=== PATIENT | female | born 2000 | race American Indian/Alaskan Native ===

== ENCOUNTER 2020-05-20 07:50 | Emergency (ER) | payer OTHER ==
[2020-05-20 08:29] LABS: HCG Qualitative,Urine Negative (Negative)
[2020-05-20 08:35] LABS: Bacteria,Urine 1+ /HPF (Negative); Bilirubin,Urine NEG (Negative); Blood,Urine NEG (Negative); Color,Urine Amber (Yellow); Mucus,Urine 3+ /HPF
[2020-05-20] MEDS ORDERED: diphenhydrAMINE 25 MG CAP PO ONE (09:31)
[2020-05-20] MEDS ORDERED: METOCLOPRAMIDE 10 MG TAB PO ONE (09:31)
--- NOTE | 2020-05-20 09:35 | Emergency Department Report ---
Vomiting/Diarrhea - [facility] Chief Complaint: Nausea/Vomiting/Diarrhea Stated Complaint: ABD PAIN,NAUSEA Time Seen by Provider: 05/20/20 09:30 Duration: 2 Days Nausea/Vomiting Severity: Mild Diarrhea Severity: None Other History: 19-year-old -Spanish female presents to the emergency room complaining of nausea secondary to her menstrual cycle. Patient states around her menstrual cycle she gets very agitated and nausea and vomiting. She reported that she has been followed by [employer] as she had a cyst on her ovaries that will cause the symptoms. She reports that her [employer] S[employer] MANAGER states that she no longer has the cyst but she just has the follicles and that should not be causing her to be nauseated. ED Review of Systems ROS: Stated complaint: ABD PAIN,NAUSEA Other details as noted in HPI ED Past Medical Hx - Past Medical History Previous Medical History?: Yes Hx Asthma: Yes - Social History Smoking Status: Never Smoker Substance Use Type: None - Medications Home Medications: Home Medications Medication Instructions Recorded Confirmed Last Taken Type Cyclobenzaprine HCl [Flexeril 5 MG 5 mg PO QHS #8 tab 07/16/18 Unknown Rx TAB] Ibuprofen [Motrin] 600 mg PO Q8H PRN #30 tablet 07/16/18 Unknown Rx Metoclopramide [Reglan] 10 mg PO TID PRN #12 tab 05/20/20 Unknown Rx Nitrofurantoin Kings/M-Cryst 100 mg PO Q12HR 10 Days #20 capsule 05/20/20 Unknown Rx [Macrobid CAP] diphenhydrAMINE [Benadryl CAP] 25 mg PO Q8HR PRN #15 capsule 05/20/20 Unknown Rx Vomiting Diarrhea Exam - Exam General: Vital signs noted. No distress. Alert and acting appropriately. Neck: No Adenopathy, No Rigidity Lungs: Yes Clear Lung Sounds, Yes Good Air Exchange, No Wheezes, No Stridor, No Cough, No Nasal Flaring, No Retractions, No Use of Accessory Muscles Heart exam: Regular: Yes, Murmur: No, Tachycardia: No Abdomen: Tenderness: No, Peritoneal Signs: No, Distention: No, Hyperactive Bowel sounds: No Neurologic: Alert and oriented, no deficits. Musculoskeletal: Unremarkable. ED Medical Decision Making - Medical Decision Making 19-year-old -Spanish female presents to the emergency room complaining of nausea secondary to her menstrual cycle. Patient states around her menstrual cycle she gets very agitated and nausea and vomiting. She reported that she has been followed by [employer] as she had a cyst on her ovaries that will cause the symptoms. She reports that her [employer] S[employer] MANAGER states that she no longer has the cyst but she just has the follicles and that should not be causing her to be nauseated. Urinalysis urine test has been sent. Patient be given Reglan 10 mg p.o. Benadryl 25 mg p.o. for the nausea and vomiting and agitation. Urine appears to have a urinary tract infection will treat with Macrobid 100 mg p.o. twice daily for 10 days. Patient is encouraged to increase fluid intake. She can take Reglan for the nausea. She can take [id number] Benadryl for the agitation. Critical care attestation.: If time is entered above; I have spent that time in minutes in the direct care of this critically ill patient, excluding procedure time. ED Disposition Clinical Impression: UTI (urinary tract infection), Anxiety Disposition: TO HOME OR SELFCARE Is pt being admited?: No Does the pt Need Aspirin: No Condition: Stable Instructions: Urinary Tract Infection in Women (ED), Anxiety (ED) Additional Instructions: Urine is positive for urinary tract infection. I felt like for you to complete your antibiotics as prescribed. For your anxiety and nausea take the Reglan and Benadryl as needed. Follow-up with a primary care provider. Prescriptions: diphenhydrAMINE [Benadryl CAP] 25 mg PO Q8HR PRN #15 capsule PRN Reason: Anxiety Nitrofurantoin Kings/M-Cryst [Macrobid CAP] 100 mg PO Q12HR 10 Days #20 capsule Metoclopramide [Reglan] 10 mg PO TID PRN #12 tab PRN Reason: Nausea And Vomiting Referrals: PRIMARY CARE, [Primary Care Provider] - 3-5 Days Forms: Work/School Release Form(ED)
[2020-05-20 10:34] VITALS: BP 128/86
== END 2020-05-20 10:34 | disposition home or self-care (01) ==
LOC: ED 07:50
DX: F41.9 Anxiety disorder, unspecified (principal); N39.0 Urinary tract infection, site not specified; J45.909 Unspecified asthma, uncomplicated; Z79.899 Other long term (current) drug therapy
CPT/HCPCS: 81001; 81025; 87086; 99283

== ENCOUNTER 2020-07-14 15:42 | Emergency (ER) | payer OTHER ==
[2020-07-14 15:58] VITALS: BP 137/82
[2020-07-14] MEDS ORDERED: DIPHtheria,PERTUSSIS(ACELL),TETANUS VACCINE/PF 0.5 ML VIAL IM ONE (16:19)
--- NOTE | 2020-07-14 16:19 | Event Note ---
ED Screening Note ED Screening Note: left ring finger laceration at work, cut by piece of metal able to move the finger did not get smashed unsure of last tetanus immunization no pmhx no allergies to meds lnmp: 06/20/2020 This initial assessment/diagnostic orders/clinical plan/treatment(s) is/are subject to change based on patients health status, clinical progression and re- assessment by fellow clinical providers in the ED. Further treatment and workup at subsequent clinical providers discretion. Patient/guardian urged not to elope from the ED as their condition may be serious if not clinically assessed and managed. Initial orders include: tdap acc eval
[2020-07-14] MEDS ORDERED: BUPIVACAINE/PF (0.5%) 5 MG/1 ML 10 ML VIAL INFILTRATI ONE (17:38)
--- NOTE | 2020-07-14 18:09 | XRay Report ---
LEFT FINGER(S) 3 VIEW(S) INDICATION / CLINICAL INFORMATION: laceration / trauma COMPARISON: None available. FINDINGS: BONES / JOINT(S): Acute comminuted fracture through the ring finger terminal tuft with approximately 2 mm of distraction and incomplete fracture line extending into the terminal phalanx diaphysis. No di slocation. No significant arthritis. SOFT TISSUES: Swelling and laceration at the distal ring finger. Correlate for nail bed injury. No ra diopaque foreign body. ADDITIONAL FINDINGS: None. Signer Name: Cuco Santillan MD Signed: 07/14/2020 6:05 PM Workstation Name: [id number]
[2020-07-14] MEDS ORDERED: HYDROcodone/ACETAMINOPHEN 5-325 MG TAB PO ONE (18:45)
[2020-07-14] MEDS ORDERED: LIDOCAINE (1%) 10 MG/1 ML VIAL 20 ML MDV INFILTRATI ONE (18:45)
--- NOTE | 2020-07-14 20:01 | Emergency Department Report ---
- General Chief Complaint: Wound/Laceration Stated Complaint: FINGER LACERATION Time Seen by Provider: 07/14/20 16:17 Source: patient Mode of arrival: Ambulatory Limitations: No Limitations - History of Present Illness Initial Comments: This is a 20 y/o female who presents for left ring finger laceration , happened at work, cut by piece of metal, able to move the fingerdid not get smashed unsure of last tetanus immunization , no pmhx, no allergies to meds , lnmp: 06/20/2020. pain is 4/10 throbbing. rom intact. - Related Data Previous Rx's Medication Instructions Recorded Last Taken Type Cyclobenzaprine HCl [Flexeril 5 MG 5 mg PO QHS #8 tab 07/16/18 Unknown Rx TAB] Ibuprofen [Motrin] 600 mg PO Q8H PRN #30 tablet 07/16/18 Unknown Rx Metoclopramide [Reglan] 10 mg PO TID PRN #12 tab 05/20/20 Unknown Rx Nitrofurantoin [place]/M-Cryst 100 mg PO Q12HR 10 Days #20 capsule 05/20/20 Unknown Rx [Macrobid CAP] diphenhydrAMINE [Benadryl CAP] 25 mg PO Q8HR PRN #15 capsule 05/20/20 Unknown Rx cephALEXin [Keflex] 500 mg PO Q8HR 7 Days #21 cap 07/14/20 Unknown Rx traMADoL [Ultram] 50 mg PO Q6HR PRN #12 tablet 07/14/20 Unknown Rx Allergies Allergy/AdvReac Type Severity Reaction Status Date / Time No Known Allergies Allergy Unverified 07/16/18 10:19 ED Review of Systems ROS: Stated complaint: FINGER LACERATION Other details as noted in HPI Constitutional: denies: chills, fever Eyes: denies: eye pain, eye discharge, vision change ENT: denies: ear pain, throat pain Respiratory: denies: cough, shortness of breath, wheezing Cardiovascular: denies: chest pain, palpitations Endocrine: no symptoms reported Gastrointestinal: denies: abdominal pain, nausea, diarrhea Genitourinary: denies: urgency, dysuria, discharge Musculoskeletal: other (left hand 4th digit tip laceration , no nail involvment ). denies: back pain, joint swelling, arthralgia Skin: other (laceration as above ). denies: rash, lesions Neurological: denies: headache, weakness, paresthesias Psychiatric: denies: anxiety, depression Hematological/Lymphatic: denies: easy bleeding, easy bruising ED Past Medical Hx - Past Medical History Hx Asthma: Yes - Surgical History Past Surgical History?: No - Social History Smoking Status: Current Every Day Smoker Substance Use Type: None - Medications Home Medications: Home Medications Medication Instructions Recorded Confirmed Last Taken Type Cyclobenzaprine HCl [Flexeril 5 MG 5 mg PO QHS #8 tab 07/16/18 Unknown Rx TAB] Ibuprofen [Motrin] 600 mg PO Q8H PRN #30 tablet 07/16/18 Unknown Rx Metoclopramide [Reglan] 10 mg PO TID PRN #12 tab 05/20/20 Unknown Rx Nitrofurantoin [place]/M-Cryst 100 mg PO Q12HR 10 Days #20 capsule 05/20/20 Unknown Rx [Macrobid CAP] diphenhydrAMINE [Benadryl CAP] 25 mg PO Q8HR PRN #15 capsule 05/20/20 Unknown Rx cephALEXin [Keflex] 500 mg PO Q8HR 7 Days #21 cap 07/14/20 Unknown Rx traMADoL [Ultram] 50 mg PO Q6HR PRN #12 tablet 07/14/20 Unknown Rx ED Physical Exam - General Limitations: No Limitations General appearance: alert, in no apparent distress - Head Head exam: Present: atraumatic, normocephalic - Eye Eye exam: Present: normal appearance, EOMI Pupils: Present: normal accommodation - ENT ENT exam: Present: mucous membranes moist - Neck Neck exam: Present: normal inspection, full ROM - Respiratory Respiratory exam: Present: normal lung sounds bilaterally. Absent: respiratory distress - Cardiovascular Cardiovascular Exam: Present: regular rate, normal rhythm, normal heart sounds. Absent: systolic murmur, diastolic murmur, rubs, gallop - GI/Abdominal GI/Abdominal exam: Present: soft, normal bowel sounds - Rectal Rectal exam: Present: deferred - Extremities Exam Extremities exam: Present: full ROM, tenderness, normal capillary refill - Expanded Upper Extremity Exam Left Hand Wrist exam: Present: full ROM, tenderness, laceration (distal finger tip no nail involvment CMS intact 2 cm laceration, rom intact, adduction, abduction intact to direct confrontaion). Absent: amputation, nail avulsion, subungual hematoma Neuro motor exam: Present: wrist extension intact, thumb opposition intact, thumb IP flexion intact, thumb adduction intact, fingers 2-5 abduction intact Neurosensory exam: Present: radial nerve intact Vascular: Present: normal capillary refill - Back Exam Back exam: Present: normal inspection, full ROM - Neurological Exam Neurological exam: Present: alert, oriented X3, reflexes normal. Absent: motor sensory deficit - Expanded Neurological Exam Expanded Patient oriented to: Present: person, place, time Speech: Present: fluid speech Motor strength exam: RUE: 5, LUE: 5 Best Eye Response (Ernie): (4) open spontaneously Best Motor Response (Ernie): (6) obeys commands Best Verbal Response (Ernie): (5) oriented Weld Total: 15 - Psychiatric Psychiatric exam: Present: normal affect, normal mood - Skin Skin exam: Present: warm, dry, normal color, other (laceration as above ). Absent: rash ED Course Vital Signs 07/14/20 15:53 Temperature 98.7 F Pulse Rate 83 Respiratory 18 Rate Blood Pressure 137/82 O2 Sat by Pulse 100 Oximetry - Laceration /Wound Repair Left Distal Finger Wound Location: upper extremity (left distal finger tip laceration, ) Wound Length (cm): 2 Wound's Depth, Shape: irregular Wound Explored: clean Irrigated w/ Saline (ccs): 50 Betadine Prep?: Yes Anesthesia: 1% Lidocaine Volume Anesthetic (ccs): 1 Wound Debrided: none required Wound Repaired With: sutures Suture Size/Type: 4:0, proline Number of Sutures: 5 Layer Closure?: No Sterile Dressing Applied?: Yes Progress: left distal ring finger laceration , no nail involvment, no bone exposure, rom intact, cms intact no muscle ,nerve, or tendon involvement. wound cleaned with betadine solution, anesthesia with 1% lidocaine x 1 cc via digital block, anesthesia was achieved, wound irrigated with 50 cc sterile saline, explore visually , and blunt tweezers, no foreign body, wound close with 4.0 prolene x 5 sutures, edges well approximated all bleeding is controlled, sterile dressing intact, pt tolerated procedure with minimal distress, given wound care instructions, pt verbalized agreement and understanding of same. ED Medical Decision Making - Radiology Data Radiology results: report reviewed, image reviewed Findings Reporting MD: Cuco Santillan Dictation Time: July 14, 2020 17:05 Transitions Manager: Not available Gas Leak Inspector Helper Date: LEFT FINGER(S) 3 VIEW(S) INDICATION / CLINICAL INFORMATION: laceration / trauma COMPARISON: None available. FINDINGS: BONES / JOINT(S): Acute comminuted fracture through the ring finger terminal tuft with approximately 2 mm of distraction and incomplete fracture line extending into the terminal phalanx diaphysis. No dislocation. No significant arthritis. SOFT TISSUES: Swelling and laceration at the distal ring finger. Correlate for nail bed injury. No radiopaque foreign body. ADDITIONAL FINDINGS: None. Signer Name: Cuco Santillan MD Signed: 07/14/2020 5:05 PM Workstation Name: [id number] - Medical Decision Making left ring finger tuff fx, finger laceration 2 cm, wound closed see procedure note, there is no nail damage, CMS intact, distal pulses intact, pt given dc instructions including follow up with pcp in2 days for wound check , and 7-10 days for suture removal, pt dc'd to home in stable condition, with rx. finger splint placed by nursing, splint check complete. and appropriate. Critical care attestation.: If time is entered above; I have spent that time in minutes in the direct care of this critically ill patient, excluding procedure time. ED Disposition Clinical Impression: Open fracture of tuft of distal phalanx of finger Finger laceration Qualifiers: Encounter type: initial encounter Finger: ring finger Damage to nail status: without damage Foreign body presence: without foreign body Laterality: left Qualified Code(s): S61.215A - Laceration without foreign body of left ring finger without damage to nail, initial encounter Disposition: DC-01 TO HOME OR SELFCARE Is pt being admited?: No Does the pt Need Aspirin: No Condition: Stable Instructions: Finger Fracture (ED), Finger Laceration (ED) Prescriptions: cephALEXin [Keflex] 500 mg PO Q8HR 7 Days #21 cap traMADoL [Ultram] 50 mg PO Q6HR PRN #12 tablet PRN Reason: Pain Referrals: CUCO ESCOBAR MD [Staff Physician] - 3-5 Days Forms: Work/School Release Form(ED)
== END 2020-07-14 20:05 | disposition home or self-care (01) ==
LOC: ED 15:42
DX: S61.215A Laceration without foreign body of left ring finger without damage to nail, initial encounter (principal); S62.635A Displaced fracture of distal phalanx of left ring finger, initial encounter for closed fracture; J45.909 Unspecified asthma, uncomplicated; F17.200 Nicotine dependence, unspecified, uncomplicated; Z79.1 Long term (current) use of non-steroidal anti-inflammatories (NSAID); Z79.899 Other long term (current) drug therapy; W26.8XXA Contact with other sharp object(s), not elsewhere classified, initial encounter; Y93.89 Activity, other specified; Y92.89 Other specified places as the place of occurrence of the external cause; Y99.0 Civilian activity done for income or pay
CPT/HCPCS: 90471; 90715

== ENCOUNTER 2020-07-25 14:55 | Emergency (ER) | payer OTHER ==
[2020-07-25 15:06] VITALS: BP 123/76
--- NOTE | 2020-07-25 15:52 | Emergency Department Report ---
Suture/Staple Removal - HPI Chief Complaint: Laceration/Recheck/Suture Stated Complaint: STITCHES REMOVED Time Seen by Provider: 07/25/20 15:48 ED Review of Systems ROS: Stated complaint: STITCHES REMOVED Other details as noted in HPI Comment: All other systems reviewed and negative Constitutional: denies: chills, fever ENT: denies: ear pain Cardiovascular: denies: chest pain, palpitations Skin: other. denies: change in color Psychiatric: denies: anxiety, auditory hallucinations ED Past Medical Hx - Past Medical History Hx Asthma: Yes - Surgical History Past Surgical History?: No - Social History Smoking Status: Never Smoker - Medications Home Medications: Home Medications Medication Instructions Recorded Confirmed Last Taken Type Cyclobenzaprine HCl [Flexeril 5 MG 5 mg PO QHS #8 tab 07/16/18 Unknown Rx TAB] Ibuprofen [Motrin] 600 mg PO Q8H PRN #30 tablet 07/16/18 Unknown Rx Metoclopramide [Reglan] 10 mg PO TID PRN #12 tab 05/20/20 Unknown Rx Nitrofurantoin [place]/M-Cryst 100 mg PO Q12HR 10 Days #20 capsule 05/20/20 Unknown Rx [Macrobid CAP] diphenhydrAMINE [Benadryl CAP] 25 mg PO Q8HR PRN #15 capsule 05/20/20 Unknown Rx cephALEXin [Keflex] 500 mg PO Q8HR 7 Days #21 cap 07/14/20 Unknown Rx traMADoL [Ultram] 50 mg PO Q6HR PRN #12 tablet 07/14/20 Unknown Rx Suture Removal Exam - Exam General: Vital signs noted. No distress. Alert and acting appropriately. Wound: Yes Tenderness, No Pathologic Erythema, No Drainage, No Pus, No Wound Dehiscence Other Systems: All other systems reviewed and are unremarkable. Sutures removed no signs and symptoms of infection no drainage or pus discharge home with instructions to keep area clean and dry with ED Course Vital Signs 07/25/20 15:00 Temperature 98.0 F Pulse Rate 83 Respiratory 16 Rate Blood Pressure 123/76 O2 Sat by Pulse 100 Oximetry ED Recheck MDM - Core Measures AMI Core Measures Followed: No Measure Exclusions: not indicated - Differential Diagnosis Suture/Staple Removal Suture removal wound recheck - Medical Decision Making Sutures removed patient tolerated well discharge home with daily wound care Critical Care Time: No Critical care attestation.: If time is entered above; I have spent that time in minutes in the direct care of this critically ill patient, excluding procedure time. ED Disposition Clinical Impression: Visit for suture removal Disposition: DC-01 TO HOME OR SELFCARE Is pt being admited?: No Does the pt Need Aspirin: No Condition: Stable Instructions: Incision Care, Adult Additional Instructions: Keep wound clean and dry Referrals: PRIMARY CARE, [Primary Care Provider] - 3-5 Days Time of Disposition: 15:53
== END 2020-07-25 16:10 | disposition home or self-care (01) ==
LOC: ED 14:55
DX: T14.8XXD Other injury of unspecified body region, subsequent encounter (principal); Z53.21 Procedure and treatment not carried out due to patient leaving prior to being seen by health care provider

== ENCOUNTER 2022-01-28 18:42 | Emergency (ER) | payer OTHER ==
[2022-01-28 21:16] LABS: Basophils % (Auto) 0.2 % (0.0-1.8); Hematocrit 40.6 % (30.3-42.9); Hemoglobin 13.5 gm/dl (10.1-14.3); Lymphocytes # (Auto) 0.9 K/mm3 (1.2-5.4); Lymphocytes % (Auto) 8.8 % (13.4-35.0); Mean Corpuscular HGB Conc 33 % (30-34); Mean Corpuscular Volume 82 fl (79-97); Monocytes # (Auto) 0.6 K/mm3 (0.0-0.8); Platelet Count 241 K/mm3 (140-440); Red Blood Count 4.96 M/mm3 (3.65-5.03)
[2022-01-28 21:36] LABS: Alanine Aminotransferase 17 units/L (7-56); Albumin 5.4 g/dL (3.9-5); Blood Urea Nitrogen 13 mg/dL (7-17); Calcium 10.4 mg/dL (8.4-10.2); Hemolysis Index 6
[2022-01-28 21:45] LABS: Bilirubin,Urine NEG (Negative); Blood,Urine NEG (Negative); Color,Urine Yellow (Yellow); Mucus,Urine 3+ /HPF; Urobilinogen,Urine < 2.0 mg/dL (<2.0)
[2022-01-28 21:45] LABS: BUN/Creatinine Ratio 19
[2022-01-28] MEDS ORDERED: ONDANSETRON 4 MG ODT TAB PO STA (23:51)
[2022-01-28] MEDS ORDERED: HYOSCYAMINE SUBL 0.125 MG TAB SL ONE (23:51)
[2022-01-28] MEDS ORDERED: SODIUM CHLORIDE 0.9% 1000 ML 1,000 ML IV ONE (23:51)
--- NOTE | 2022-01-28 23:55 | Emergency Department Report ---
ED General Adult HPI - General Chief complaint: Nausea/Vomiting/Diarrhea Stated complaint: VOMITING Time Seen by Provider: 01/28/22 23:49 Source: patient Mode of arrival: Ambulatory Limitations: No Limitations - History of Present Illness Initial comments: 21-year-old female Lindy emerged department complaining of a 2-day history of nausea and vomiting repetitively after eating ground beef which she thinks may have been bad she reports no diarrhea however. No hemoptysis no hematemesis hematochezia, no fever, chills, sweats. No chest pain, no palpitations, no headache, no blurred vision, no dizziness. -: Gradual Consistency: constant Improves with: none Worsens with: none Associated Symptoms: denies other symptoms - Related Data Previous Rx's Medication Instructions Recorded Last Taken Type Cyclobenzaprine HCl [Flexeril 5 MG 5 mg PO QHS #8 tab 07/16/18 Unknown Rx TAB] Ibuprofen [Motrin] 600 mg PO Q8H PRN #30 tablet 07/16/18 Unknown Rx Metoclopramide [Reglan] 10 mg PO TID PRN #12 tab 05/20/20 Unknown Rx Nitrofurantoin [place]/M-Cryst 100 mg PO Q12HR 10 Days #20 capsule 05/20/20 Unknown Rx [Macrobid CAP] diphenhydrAMINE [Benadryl CAP] 25 mg PO Q8HR PRN #15 capsule 05/20/20 Unknown Rx cephALEXin [Keflex] 500 mg PO Q8HR 7 Days #21 cap 07/14/20 Unknown Rx traMADoL [Ultram] 50 mg PO Q6HR PRN #12 tablet 07/14/20 Unknown Rx Hyoscyamine Subl [Levsin Sl 0.125 0.125 mg SL Q6HR PRN #20 tab 01/29/22 Unknown Rx TAB] Ondansetron [Zofran Odt] 4 mg PO Q8HR #20 tab.rapdis 01/29/22 Unknown Rx Allergies Allergy/AdvReac Type Severity Reaction Status Date / Time No Known Allergies Allergy Unverified 07/16/18 10:19 ED Review of Systems ROS: Stated complaint: VOMITING Other details as noted in HPI Comment: All other systems reviewed and negative ED Past Medical Hx - Past Medical History Hx Asthma: Yes - Social History Smoking Status: Never Smoker - Medications Home Medications: Home Medications Medication Instructions Recorded Confirmed Last Taken Type Cyclobenzaprine HCl [Flexeril 5 MG 5 mg PO QHS #8 tab 07/16/18 Unknown Rx TAB] Ibuprofen [Motrin] 600 mg PO Q8H PRN #30 tablet 07/16/18 Unknown Rx Metoclopramide [Reglan] 10 mg PO TID PRN #12 tab 05/20/20 Unknown Rx Nitrofurantoin [place]/M-Cryst 100 mg PO Q12HR 10 Days #20 capsule 05/20/20 Unknown Rx [Macrobid CAP] diphenhydrAMINE [Benadryl CAP] 25 mg PO Q8HR PRN #15 capsule 05/20/20 Unknown Rx cephALEXin [Keflex] 500 mg PO Q8HR 7 Days #21 cap 07/14/20 Unknown Rx traMADoL [Ultram] 50 mg PO Q6HR PRN #12 tablet 07/14/20 Unknown Rx Hyoscyamine Subl [Levsin Sl 0.125 0.125 mg SL Q6HR PRN #20 tab 01/29/22 Unknown Rx TAB] Ondansetron [Zofran Odt] 4 mg PO Q8HR #20 tab.rapdis 01/29/22 Unknown Rx ED Physical Exam - General Limitations: No Limitations General appearance: alert, in no apparent distress - Head Head exam: Present: atraumatic, normocephalic - Eye Eye exam: Present: normal appearance - ENT ENT exam: Present: mucous membranes moist - Neck Neck exam: Present: normal inspection - Respiratory Respiratory exam: Present: normal lung sounds bilaterally. Absent: respiratory distress - Cardiovascular Cardiovascular Exam: Present: regular rate, normal rhythm. Absent: systolic murmur, diastolic murmur, rubs, gallop - GI/Abdominal GI/Abdominal exam: Present: soft, normal bowel sounds - Extremities Exam Extremities exam: Present: normal inspection - Back Exam Back exam: Present: normal inspection - Neurological Exam Neurological exam: Present: alert, oriented X3 - Psychiatric Psychiatric exam: Present: normal affect, normal mood - Skin Skin exam: Present: warm, dry, intact, normal color. Absent: rash ED Course Vital Signs 01/28/22 01/29/22 01/29/22 19:21 02:34 04:00 Temperature 98.9 F Pulse Rate 97 H 60 60 Respiratory 18 18 18 Rate Blood Pressure 131/97 Blood Pressure 100/66 100/66 [Left] O2 Sat by Pulse 99 100 100 Oximetry ED Medical Decision Making - Lab Data Result diagrams: 01/28/22 20:45 01/28/22 20:45 Critical care attestation.: If time is entered above; I have spent that time in minutes in the direct care of this critically ill patient, excluding procedure time. ED Disposition Clinical Impression: Nausea & vomiting Disposition: 01 HOME / SELF CARE / HOMELESS Condition: Stable Instructions: Viral Gastroenteritis, Adult, [id number], Food Choices to Help Relieve Diarrhea, Adult, Rotavirus Infection, Adult, Nausea and Vomiting, Adult, [id number] Prescriptions: Hyoscyamine Subl [Levsin Sl 0.125 TAB] 0.125 mg SL Q6HR PRN #20 tab PRN Reason: abdominal pian Ondansetron [Zofran Odt] 4 mg PO Q8HR #20 tab.stefanie Referrals: FATMATA IRAHETA MD [Primary Care Provider] - 3-5 Days
[2022-01-29 02:35] VITALS: BP 100/66
== END 2022-01-29 04:17 | disposition home or self-care (01) ==
LOC: ED 18:42
DX: R11.2 Nausea with vomiting, unspecified (principal); J45.909 Unspecified asthma, uncomplicated; Z79.899 Other long term (current) drug therapy
CPT/HCPCS: 36415; 80053; 81001; 84703; 85025; 96360; 99283; J7030; J3490; Q0162

== ENCOUNTER 2022-03-24 10:09 | Emergency (ER) | payer OTHER ==
[2022-03-24 11:16] LABS: Bilirubin,Urine NEG (Negative); Blood,Urine NEG (Negative); Color,Urine Yellow (Yellow)
[2022-03-24 12:18] LABS: Mucus,Urine 3+ /HPF
--- NOTE | 2022-03-24 12:28 | Emergency Department Report ---
ED Female HPI - General Chief complaint: Abdominal Pain Stated complaint: VOMITING/DEHYDRATION/PAIN WHEN SWALLOWING Time Seen by Provider: 03/24/22 11:54 Source: patient Mode of arrival: Ambulatory Limitations: No Limitations - History of Present Illness Initial comments: Patient is a 21-year-old female that comes to the emergency room complaining na usea, no vomiting but with epigastric distress. She endorses dysuria., No back pain. Denies being . Last menstrual cycle 2 weeks ago. Patient denies diarrhea. She denies any abdominal pain per se. She denies back pain. She denies fever or chills. No fever cough or congestion. Patient ambulatory, nontoxic [id number] on arrival to the ER -: Gradual, days(s) Consistency: intermittent Improves with: none Worsens with: none Are you Now?: No Associated Symptoms: denies other symptoms - Related Data Sexually active: Yes Previous Rx's Medication Instructions Recorded Last Taken Type Sulfamethoxazole/Trimethoprim 1 each PO BID #10 tablet 03/24/22 Unknown Rx [Bactrim DS TAB] Allergies Allergy/AdvReac Type Severity Reaction Status Date / Time No Known Allergies Allergy Unverified 07/16/18 10:19 ED Review of Systems ROS: Stated complaint: VOMITING/DEHYDRATION/PAIN WHEN SWALLOWING Other details as noted in HPI Comment: All other systems reviewed and negative ED Past Medical Hx - Past Medical History Previous Medical History?: Yes Hx GERD: Yes Hx Asthma: Yes - Surgical History Past Surgical History?: No - Family History Family history: no significant - Social History Smoking Status: Current Every Day Smoker Substance Use Type: None - Medications Home Medications: Home Medications Medication Instructions Recorded Confirmed Last Taken Type Sulfamethoxazole/Trimethoprim 1 each PO BID #10 tablet 03/24/22 Unknown Rx [Bactrim DS TAB] ED Physical Exam - General Limitations: No Limitations General appearance: alert, in no apparent distress - Head Head exam: Present: atraumatic, normocephalic - Eye Eye exam: Present: normal appearance - ENT ENT exam: Present: mucous membranes moist - Neck Neck exam: Present: normal inspection - Respiratory Respiratory exam: Present: normal lung sounds bilaterally. Absent: respiratory distress - Cardiovascular Cardiovascular Exam: Present: regular rate, normal rhythm. Absent: systolic murmur, diastolic murmur, rubs, gallop - GI/Abdominal GI/Abdominal exam: Present: soft, normal bowel sounds - Extremities Exam Extremities exam: Present: normal inspection - Back Exam Back exam: Present: normal inspection - Neurological Exam Neurological exam: Present: alert, oriented X3 - Psychiatric Psychiatric exam: Present: normal affect, normal mood - Skin Skin exam: Present: warm, dry, intact, normal color. Absent: rash ED Course Vital Signs 03/24/22 10:14 Temperature 99.1 F Pulse Rate 86 Respiratory 18 Rate Blood Pressure 98/70 O2 Sat by Pulse 98 Oximetry ED Medical Decision Making - Lab Data Result diagrams: 03/24/22 11:43 03/24/22 11:43 - Medical Decision Making Vital Signs 03/24/22 10:14 Temperature 99.1 F Pulse Rate 86 Respiratory 18 Rate Blood Pressure 98/70 O2 Sat by Pulse 98 Oximetry Lab Results 03/24/22 03/24/22 03/24/22 Range/Units 11:43 11:43 Unknown WBC 9.6 (4.5-11.0) K/mm3 RBC 5.31 H (3.65-5.03) M/mm3 Hgb 14.3 (10.1-14.3) gm/dl Hct 44.3 H (30.3-42.9) % MCV 84 (79-97) fl MCH 27 L (28-32) pg MCHC 32 (30-34) % RDW 14.6 (13.2-15.2) % Plt Count 241 (140-440) K/mm3 Sodium 133 L (137-145) mmol/L Potassium 3.0 L (3.6-5.0) mmol/L Chloride 93.2 L (98-107) mmol/L Carbon Dioxide 28 (22-30) mmol/L Anion Gap 15 mmol/L BUN 10 (7-17) mg/dL Creatinine 0.7 (0.6-1.2) mg/dL Estimated GFR > 60 ml/min BUN/Creatinine Ratio 14 % Glucose 82 (65-100) mg/dL Calcium 10.0 (8.4-10.2) mg/dL Total Bilirubin 0.60 (0.1-1.2) mg/dL AST 18 (5-40) units/L ALT 11 (7-56) units/L Alkaline Phosphatase 53 (35-129) units/L Total Protein 8.0 (6.3-8.2) g/dL Albumin 5.2 H (3.9-5) g/dL Albumin/Globulin Ratio 1.9 % Lipase 13 (13-60) units/L Urine Color Yellow (Yellow) Urine Turbidity Clear (Clear) Urine pH 7.0 (5.0-7.0) Ur Specific [place] 1.025 (1.003-1.030) Urine Protein 100 mg/dl (Negative) mg/dL Urine Glucose (UA) Neg (Negative) mg/dL Urine Ketones 20 (Negative) mg/dL Urine Blood Neg (Negative) Urine Nitrite Neg (Negative) Urine Bilirubin Neg (Negative) Urine Urobilinogen 4.0 (<2.0) mg/dL Ur Leukocyte Esterase Neg (Negative) Urine WBC (Auto) 12.0 H (0.0-6.0) /HPF Urine RBC (Auto) 11.0 (0.0-6.0) /HPF U Epithel Cells (Auto) 21.0 H (0-13.0) /HPF Urine Mucus 3+ /HPF Urine HCG, Qual Negative (Negative) Abdominal exam is benign. No CVA tenderness labs noted. Lipase normal. WBC normal. test negative Patient has a history of GERD. She was given a dose of Pepcid and this relieved her epigastric distress. UA had 12 WBCs, it was negative for nitrates and leukocytes. However, it did reflex to culture. Given that the patient has dysuria and that the urine has triggered a culture I am treating her for UTI. She is being discharged home on Bactrim. If her culture requires anything other than Bactrim we need to call her back. On discharge exam she is ambulatory, not ill nontoxic and taking p.o. Patient being discharged home with discharge plan of care including diet, activity, medications and follow-up. She verbalizes understanding of plan of care. - Differential Diagnosis Rule out , UTI, Tabby cystitis Critical care attestation.: If time is entered above; I have spent that time in minutes in the direct care of this critically ill patient, excluding procedure time. ED Disposition Clinical Impression: UTI (urinary tract infection) Qualifiers: Urinary tract infection type: site unspecified Hematuria presence: without hematuria Qualified Code(s): N39.0 - Urinary tract infection, site not specified GERD (gastroesophageal reflux disease) Qualifiers: Esophagitis presence: without esophagitis Qualified Code(s): K21.9 - Gastro- esophageal reflux disease without esophagitis Disposition: 01 HOME / SELF CARE / HOMELESS Is pt being admited?: No Does the pt Need Aspirin: No Condition: Stable Instructions: Urinary Tract Infection, Adult, [id number], Abdominal Pain (ED) Additional Instructions: Medications as ordered today until gone [id number] Motrin or Tylenol can be used for pain stay well-hydrated with water At the completion of your antibiotics follow-up with primary care to make sure this is gotten better. Have given you referral below Diet and activity as tolerated Prescriptions: Sulfamethoxazole/Trimethoprim [Bactrim DS TAB] 1 each PO BID #10 tablet Referrals: FATMATA IRAHETA MD [Staff Physician] - 3-5 Days Forms: Work/School Release Form(ED) Time of Disposition: 14:06
[2022-03-24 12:38] LABS: Hematocrit 44.3 % (30.3-42.9); Hemoglobin 14.3 gm/dl (10.1-14.3); Mean Corpuscular HGB Conc 32 % (30-34); Mean Corpuscular Volume 84 fl (79-97); Platelet Count 241 K/mm3 (140-440); Red Blood Count 5.31 M/mm3 (3.65-5.03); Red Cell Distribution Width 14.6 % (13.2-15.2)
[2022-03-24] MEDS ORDERED: cefTRIAXone/NS 1 GM/50 ML 1 GM/50 ML BAG IV ONE (13:10)
[2022-03-24] MEDS ORDERED: SODIUM CHLORIDE 0.9% 1000 ML 1,000 ML IV ONE (13:10)
[2022-03-24] MEDS ORDERED: ACETAMINOPHEN 500 MG TAB PO ONE (13:11)
[2022-03-24] MEDS ORDERED: ONDANSETRON 4 MG/2 ML INJ IV ONE (13:11)
[2022-03-24 13:35] LABS: Alanine Aminotransferase 11 units/L (7-56); Albumin 5.2 g/dL (3.9-5); Blood Urea Nitrogen 10 mg/dL (7-17); Hemolysis Index 7
[2022-03-24 13:35] LABS: HCG Qualitative,Urine Negative (Negative)
[2022-03-24 13:43] LABS: BUN/Creatinine Ratio 14
[2022-03-24] MEDS ORDERED: FAMOTIDINE 20 MG TAB PO ONE (13:48)
[2022-03-24] MEDS ORDERED: LIDOCAINE-MPF (1%) 10 MG/1 ML VIAL 5 ML INFILTRATI ONE (14:05)
[2022-03-24 16:38] VITALS: BP 112/72
== END 2022-03-24 16:38 | disposition home or self-care (01) ==
LOC: ED 10:09
DX: N39.0 Urinary tract infection, site not specified (principal); K21.9 Gastro-esophageal reflux disease without esophagitis; J45.909 Unspecified asthma, uncomplicated; F17.200 Nicotine dependence, unspecified, uncomplicated
CPT/HCPCS: 36415; 80053; 81001; 81025; 83690; 85027; 87086; 96360; 96372; 99283; J0696; J3490